=== PATIENT | male | born 1950 | race Caucasian/White ===

== ENCOUNTER 2018-10-29 06:58 | Day surgery (SDC) | payer OTHER ==
[2018-10-29] MEDS ORDERED: LIDOCAINE 2% (SDV) 5 ML INJ (09:45)
[2018-10-29] MEDS ORDERED: PROPOFOL 40 ML (09:45)
[2018-10-29] MEDS ORDERED: HYDROmorphONE 1 MG/5 ML IV SYRINGE IV (10:00)
[2018-10-29] MEDS ORDERED: ONDANSETRON 4 MG INJ IV (10:00)
== END 2018-10-29 15:16 | disposition home or self-care (01) ==
LOC: GIL 06:58
DX: Z12.11 Encounter for screening for malignant neoplasm of colon (principal); D12.5 Benign neoplasm of sigmoid colon; K64.8 Other hemorrhoids
CPT/HCPCS: 45380; 88305

== ENCOUNTER 2019-02-18 16:18 | Day surgery (SDC) | payer OTHER ==
[~2019-02-18 16:18] MED LIST: CEFAZOLIN 2 GM/50 ML (PMX) 50 ML IVPB
[2019-02-18] MEDS: LACTATED RINGER'S 1,000 ML IV (17:13)
[2019-02-18] MEDS ORDERED: POLYMYXIN/BACITRACIN 1L IRRIG (18:00)
[2019-02-18] MEDS: BUPIVACAINE 0.5% (SDV) 30 ML INJ (18:53)
[2019-02-18] MEDS: LIDOCAINE 1% (MPF) 30 ML INJ (18:53)
[2019-02-18] MEDS ORDERED: ROPIVACAINE 0.5 % 30 ML VIAL (19:01)
[2019-02-18] MEDS ORDERED: KETAMINE (50 MG/ML) 10 ML VIAL (19:32)
[2019-02-18] MEDS ORDERED: FENTAnyl 50 MCG/ML VIAL IV ×3 (20:00)
[2019-02-18] MEDS ORDERED: EPHEDrine 25 MG/5 ML SYG IV (20:00)
[2019-02-18] MEDS ORDERED: IPRATROPIUM (NEB) 0.5 MG/2.5 ML AMP HHN (20:00)
[2019-02-18] MEDS ORDERED: hydrALAzine 20 MG INJ IV (20:00)
[2019-02-18] MEDS ORDERED: DIPHENHYDRAMINE 50 MG INJ IV (20:00)
[2019-02-18] MEDS ORDERED: HYDROmorphONE 1 MG/5 ML IV SYRINGE IV ×3 (20:00)
[2019-02-18] MEDS ORDERED: MIDAZOLAM 1 MG/ML 2 ML INJ IV (20:00)
[2019-02-18] MEDS ORDERED: MEPERIDINE 25 MG INJ IV (20:00)
[2019-02-18] MEDS ORDERED: OXYCODONE/ACETAMINOPHEN (5/325) TAB PO ×2 (20:00)
[2019-02-18] MEDS ORDERED: TRIMETHOBENZAMIDE 100 MG/ML VIAL IM (20:00)
[2019-02-18] MEDS ORDERED: ONDANSETRON 4 MG INJ IV (20:00)
[2019-02-18] MEDS ORDERED: ALBUTEROL 0.083% (NEB) 2.5 MG/3 ML AMP HHN (20:00)
[2019-02-18] MEDS ORDERED: LABETALOL HCL 20MG INJ IV (20:00)
[2019-02-18] MEDS ORDERED: GLYCOPYRROLATE 0.4 MG INJ (20:02)
[2019-02-18] MEDS ORDERED: MIDAZOLAM 1 MG/ML 2 ML INJ (20:02)
[2019-02-18] MEDS ORDERED: CEFAZOLIN 1 GM INJ (20:02)
[2019-02-18] MEDS ORDERED: ROCURONIUM 50 MG INJ (20:02)
[2019-02-18] MEDS ORDERED: NEOSTIGMINE 3 MG/3 ML SYRINGE (20:02)
[2019-02-18] MEDS ORDERED: PROPOFOL 20 ML (20:02)
[2019-02-18] MEDS ORDERED: ONDANSETRON 4 MG INJ (20:03)
[2019-02-18] MEDS ORDERED: FENTAnyl 50 MCG/ML VIAL (20:03)
[2019-02-18] MEDS ORDERED: DEXAMETHASONE 4 MG/ML 5 ML INJ (20:03)
[2019-02-18] MEDS ORDERED: KETOROLAC 30 MG INJ (21:32)
== END 2019-02-18 23:25 | disposition home or self-care (01) ==
LOC: SDS 16:18
DX: S52.571D Other intraarticular fracture of lower end of right radius, subsequent encounter for closed fracture with routine healing (principal); X58.XXXD Exposure to other specified factors, subsequent encounter; G56.01 Carpal tunnel syndrome, right upper limb; E78.5 Hyperlipidemia, unspecified; I10 Essential (primary) hypertension; E03.9 Hypothyroidism, unspecified
CPT/HCPCS: 64721; 73110-RT